=== PATIENT | female | born 1980 | race Caucasian/White ===

== ENCOUNTER 2017-03-19 13:09 | Emergency (ER) | payer OTHER ==
[~2017-03-19] VITALS: Ht 170.2 cm; Wt 102.5 kg
[2017-03-19 13:14] VITALS: BP 147/81
[2017-03-19] MEDS ORDERED: OXYcodone/APAP 7.5/325MG TABLET PO ONE (14:30)
[2017-03-19] MEDS ORDERED: OXYcodone/APAP 7.5/325MG TABLET ONE (15:23)
== END 2017-03-19 15:43 | disposition home or self-care (01) ==
LOC: ED 15:37
DX: O26.892 Other specified pregnancy related conditions, second trimester (principal); F11.20 Opioid dependence, uncomplicated; Z3A.21 21 weeks gestation of pregnancy
CPT/HCPCS: 99283

== ENCOUNTER 2017-04-09 17:28 | Outpatient (CLI) | payer MEDICAID ==
[~2017-04-09] VITALS: Ht 168.9 cm; Wt 94.5 kg
[~2017-04-09 17:28] MED LIST: METH40TA3 PO
[2017-04-09 18:00] LABS: DAU SCREEN DISCLAIMER
[2017-04-09 18:06] VITALS: BP 108/65
[2017-04-09] MEDS ORDERED: PROG200C2 PO (18:22)
[2017-04-09] MEDS ORDERED: PREN1TAB60 PO (18:22)
[2017-04-09 18:37] LABS: HEMOGLOBIN 12.4 g/dL (11.7-16.4)
[2017-04-09 19:08] LABS: HIV 1&2 ANTIBODY SCREEN Nonreactive (Nonreactive); HIV-1 p24 ANTIGEN Nonreactive (Nonreactive)
== END 2017-04-09 19:00 | disposition home or self-care (01) ==
LOC: LDOP 17:28
PROVIDERS: ATTEND Obstetrics & Gynecology
DX: O46.92 Antepartum hemorrhage, unspecified, second trimester (principal); Z3A.23 23 weeks gestation of pregnancy
CPT/HCPCS: 36415; 59025; 80307; 81001; 85027; 86592; 86703; 86762; 86850; 86900; 87340; 87899; 99211; G0435; G0463; G0479

== ENCOUNTER 2017-05-18 16:32 | Outpatient (CLI) | payer MEDICAID ==
[~2017-05-18] VITALS: Ht 168.9 cm; Wt 99.0 kg
[~2017-05-18 16:32] MED LIST changes: +PREN1TAB60 PO; +PROG200C2 PO
[2017-05-18 16:37] VITALS: BP 120/55
[2017-05-18 17:03] LABS: DAU SCREEN DISCLAIMER
== END 2017-05-18 19:14 | disposition home or self-care (01) ==
LOC: LDOP 16:32
PROVIDERS: ATTEND Obstetrics & Gynecology
DX: O09.523 Supervision of elderly multigravida, third trimester (principal); O26.893 Other specified pregnancy related conditions, third trimester; O99.343 Other mental disorders complicating pregnancy, third trimester; R10.9 Unspecified abdominal pain; F32.9 Major depressive disorder, single episode, unspecified; Z3A.28 28 weeks gestation of pregnancy
CPT/HCPCS: 59025; 76805; 80307; 81001; 87086; 99211; G0463; G0479

== ENCOUNTER 2019-06-22 15:56 | Emergency (ER) | payer MEDICAID ==
[~2019-06-22] VITALS: Ht 170.2 cm; Wt 105.9 kg
[~2019-06-22 15:56] MED LIST changes: +PROG200C10 PO; -PROG200C2 PO
--- NOTE | 2019-06-22 16:28 | NUR ---
FIRST CONTACT WITH PT. PT STATES "I'VE BEEN HAVING ISSUES FOR 4 DAYS GETTING SOB WHEN WALKING AND TRYING TO TALK AND FEELING LIKE MY HEART IS RACING" "IT HURTS BEHIND MY BOOB" (LEFT) MY JAW AND MY HEAD HURT. HOPKINS PAIN 03/10. PT'S AOX4. RESPS EVEN AND UNLABORED. ALL MONITORS IN PLACE. CALL LIGHT WITHIN REACH. 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
[2019-06-22 17:10] LABS: BASOPHILS # (AUTO) 0.03 x10^3/uL (0-0.1); BASOPHILS % (AUTO) 0 % (0-1); EOSINOPHILS # (AUTO) 0.15 x10^3/uL (0-0.4); EOSINOPHILS % (AUTO) 2 % (1-7); LYMPHOCYTES # (AUTO) 1.87 x10^3/uL (1-3.4); LYMPHOCYTES % (AUTO) 27 % (22-44); MD NO; MEAN CORPUSCULAR HEMOGLOBIN 28.2 pg (27.0-34.8); MEAN CORPUSCULAR HGB CONC 32.7 g/dL (32.4-35.8); MEAN CORPUSCULAR VOLUME 86.3 fL (80-100); MEAN PLATELET VOLUME 8.5 fL (7.4-10.4); MONOCYTES # (AUTO) 0.57 x10^3/uL (0.2-0.8); MONOCYTES % (AUTO) 8 % (2-9); NEUTROPHILS # (AUTO) 4.34 x10^3/uL (1.8-6.8); NEUTROPHILS % (AUTO) 62 % (42-75); PLATELET COUNT 283 x10^3/uL (130-400); RED BLOOD COUNT 4.46 x10^6/uL (3.82-5.3); RED CELL DISTRIBUTION WIDTH 14.2 % (9.6-15.2)
[2019-06-22 17:18] LABS: ALANINE AMINOTRANSFERASE 14 U/L (12-78); ALBUMIN 3.2 g/dL (3.4-5.0); ANION GAP 5 mmol/L (5-15); CALCIUM 8.2 mg/dL (8.5-10.1); CHLORIDE 109 mmol/L (98-107)
[2019-06-22 17:23] LABS: ALKALINE PHOSPHATASE 81 U/L (45-117); BILIRUBIN,TOTAL 0.5 mg/dL (0.2-1.0); CREATININE 0.74 mg/dL (0.55-1.02); TOTAL PROTEIN 6.7 g/dL (6.4-8.2); TROPONIN I < 0.015 ng/mL (0.000-0.045)
--- NOTE | 2019-06-22 17:54 | NUR ---
PT REQUESTING PAIN MED FOR HOPKINS. EDMD NOTIFIED.
[2019-06-22] MEDS ORDERED: IBUPROFEN 200 MG TABLET ONE (18:10)
[2019-06-22 18:19] VITALS: BP 113/67
--- NOTE | 2019-06-22 18:19 | NUR ---
PT MEDICATED PER EMAR. PT TOLERATED WELL.
[2019-06-22] MEDS ORDERED: IBUPROFEN 200 MG TABLET PO ONE (18:30)
--- NOTE | 2019-06-22 18:51 | NUR ---
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 POC DISCUSSED. PT DENIES FURTHER NEEDS AT THIS TIME. AWAITING MD RECHECK
--- NOTE | 2019-06-22 18:56 | NUR ---
REPORT GIVEN TO ALEX DUNN.
== END 2019-06-22 19:15 | disposition home or self-care (01) ==
LOC: ED 19:09
DX: R07.2 Precordial pain (principal); R51 Headache; R06.02 Shortness of breath; I10 Essential (primary) hypertension
CPT/HCPCS: 36415; 71045; 80053; 83880; 84484; 85025; 85379; 93005; 99284

== ENCOUNTER 2020-02-19 14:24 | Emergency (ER) | payer MEDICAID ==
[~2020-02-19] VITALS: Ht 170.2 cm; Wt 113.0 kg
[2020-02-19 14:27] VITALS: BP 134/74
--- NOTE | 2020-02-19 14:40 | NUR ---
PT REPORTS PAINFUL BUMP UNDER RIGHT AXILLA X2 WEEKS, NOTICED IT AFTER SHAVING.
[2020-02-19] MEDS ORDERED: LIDOCAINE 1%-EPI 1:100K, 20ML ONE (14:58)
[2020-02-19] MEDS ORDERED: LIDOCAINE 1%-EPI 1:100K, 20ML SQ ONE (15:00)
--- NOTE | 2020-02-19 15:55 | NUR ---
Patient given discharge instructions and they have confirmed that they understand the instructions. Patient ambulatory with steady gait.
== END 2020-02-19 15:56 | disposition home or self-care (01) ==
LOC: ED 15:00
DX: L02.411 Cutaneous abscess of right axilla (principal); I10 Essential (primary) hypertension
CPT/HCPCS: 10061; 99284